=== PATIENT | female | born 1975 | race Caucasian/White ===

== ENCOUNTER 2016-04-29 16:59 | Emergency (ER) | payer MEDICAID ==
[~2016-04-29] VITALS: Ht 170.2 cm; Wt 88.5 kg
[~2016-04-29 16:59] MED LIST: CAR250T; SERT25TA84
[2016-04-29 17:21] VITALS: BP 140/88
[2016-04-29 18:10] LABS: Urine Bilirubin Negative (Negative); Urine Blood Negative /uL (Negative); Urine Color Yellow (Yellow); Urine Glucose Normal (Normal); Urine Ketone Negative (Negative); Urine Mucus FEW (None Seen); Urine Nitrite Negative (Negative); Urine RBC <1 /hpf (0 - 4); Urine Squamous Epithelial Cell FEW /hpf (<5); Urine Urobilinogen Normal (Negative); Urine pH 5.5 (5.0-8.0)
[2016-04-29 18:39] LABS: BUN/Creatinine Ratio 27.5; Bilirubin, Total 0.2 mg/dL (0.2-1.0); Calcium 9.2 mg/dL (8.5-10.1); Potassium 4.3 mmol/L (3.5-5.1); Total Protein 8.3 g/dL (6.4-8.2)
[2016-04-29 18:40] LABS: Basophils # (auto) 0.1 uL; Basophils % (auto) 0.5 % (0.0-2.0); DEFINITIVE VIEW TRANSMISSION; Eosinophils # (auto) 0.3 uL; Eosinophils % (auto) 2.7 % (0.0-7.0); Hematocrit 34.1 % (36.0-46.0); Hemoglobin 10.8 g/dL (12.2-16.2); Lymphocytes # (auto) 3.3 uL; Lymphocytes % (auto) 29.6 % (10.0-50.0); Mean Corpuscular Hgb Conc. 31.7 g/dL (32.0-36.0); Mean Corpuscular Volume 75.8 fL (80.0-100.0); Mean Platelet Volume 8.3 fL (7.4-10.4); Monocytes # (auto) 0.9 uL; Monocytes % (auto) 8.1 % (0.0-12.0); Neutrophils # (auto) 6.5 uL; Neutrophils % (auto) 59.1 % (37.0-80.0); Platelet Count (auto) 385 10^3/uL (140-450); Red Cell Distribution Width 18.5 % (11.6-16.0); White Blood Cell 11.1 10^3/uL (4.4-10.8)
== END 2016-04-29 23:44 | disposition left against medical advice (07) ==
LOC: ER 17:07
DX: R10.32 Left lower quadrant pain (principal); Z53.21 Procedure and treatment not carried out due to patient leaving prior to being seen by health care provider
CPT/HCPCS: 36415; 80053; 81001; 81025; 85025